=== PATIENT | male | born 1955 | race Caucasian/White ===

== ENCOUNTER 2019-03-05 07:19 | Day surgery (SDC) | payer BC, OTHER ==
[2019-03-03 15:16] VITALS: BMI 37.7
[2019-03-05] MEDS ORDERED: MIDAZOLAM HCL 2 MG/2 ML SINGLE DOSE VIAL ONE ×2 (09:45→10:26)
[2019-03-05] MEDS ORDERED: ROPIVACAINE HCL 0.5% 30ML VIAL ONE (09:45)
--- NOTE | 2019-03-05 09:54 | HP ---
[facility]ellite [facility] - Chief Complaint Chief Complaint: right shoulder pain - Past Medical History Allergies/Adverse Reactions: Allergies Allergy/AdvReac Type Severity Reaction Status Date / Time No Known Allergies Allergy Verified 03/03/19 15:05 - Current Medications Current Medications: Home Medications Medication Instructions Recorded Glucosa Kessler 2Kcl/Chondroitin Kessler 1 each PO DAILY 03/03/19 [Glucosamine & Chondroitin Cap] Magnesium 250 mg PO DAILY 03/03/19 Oxycodone HCl/Acetaminophen 1 - 2 tab PO Q6H #30 tab MDD 6 03/05/19 [Percocet 5-325 mg Tablet] Satellite Physical Exam - Physical Examination Vital Signs: Vital Signs Period Temp Pulse Resp BP Sys/Tanner Pulse Ox Last 24 Hr 98.1 F 88 18 133/89 General Appearance: Well Nourished, Well Developed, Alert & Oriented x3 ENT: Clear Lung: Normal air movement Heart: Regular rate & rhythm Extremities: Other (right shoulder- + ttp, decrrom, + emtpy can, + neer, + huggins, nvi, MRI + rct) Neurological: Intact, Alert, Oriented Satellite Impression/Plan - Impression/Plan Impression: right shoulder rct Operative Procedure: right shoulder arthroscopy with RCR, SAD Date to be Performed: 03/05/19
[2019-03-05] MEDS ORDERED: ROCURONIUM BROMIDE 50 MG/5 ML SYRINGE ONE (10:26)
[2019-03-05] MEDS ORDERED: PROPOFOL 20 ML ONE (10:26)
[2019-03-05] MEDS ORDERED: ePHEDrine SULFATE 50 MG/1 ML AMPULE ONE (10:33)
[2019-03-05] MEDS ORDERED: DEXAMETHASONE SOD PHOSPHATE 4 MG/1 ML VIAL ONE (10:34)
[2019-03-05] MEDS ORDERED: oxyCODONE HCL 5 MG TABLET PO PRN (11:02)
[2019-03-05] MEDS ORDERED: ONDANSETRON 4 MG/2 ML VIAL IVPUSH PRN (11:02)
[2019-03-05] MEDS ORDERED: LACTATED RINGERS SOLUTION 1,000 ML IV SCH (11:15)
[2019-03-05] MEDS ORDERED: NEOSTIGMINE METHYLSULFATE 0.5 MG/ML - 10 ML MDV ONE (11:21)
[2019-03-05] MEDS ORDERED: GLYCOPYRROLATE 0.2 MG/1 ML VIAL ONE (11:21)
--- NOTE | 2019-03-05 11:31 | OP ---
Operative Note - Note: Operative Date: 03/05/19 (geronimo) Pre-Operative Diagnosis: right shoulder rct Operation: right shoulder arthroscopy with SAD Post-Operative Diagnosis: Same as Pre-op Surgeon: Luís Ramirez [employer] Testing Technician: Renny Keating Anesthesia: General, Local Specimens Removed: shavings Estimated Blood Loss (mls): 5
[2019-03-05] MEDS ORDERED: FAMOTIDINE 20 MG PREMIXED IVPB IVPB ONE (12:00)
[2019-03-05] MEDS ORDERED: FAMOTIDINE 20 MG/50 ML IVPB 20 MG/50 ML MG IVPB ONE (12:00)
[2019-03-05 13:32] VITALS: TEMP 98.2
[2019-03-05 14:55] VITALS: BP 143/74; PULSE 75
--- NOTE | 2019-03-08 15:52 | OP ---
DATE OF OPERATION: 03/05/2019 PREOPERATIVE DIAGNOSIS: Right rotator cuff tear. POSTOPERATIVE DIAGNOSIS: Right rotator cuff tear. PROCEDURE: Arthroscopy right shoulder, subacromial decompression, debridement of rotator cuff but no repair. SURGICAL ATTENDING: Luís Ramirez MD INSTRUCTOR OF SPANISH: ROSALINO Souza ANESTHESIA: Regional and general. CLOSURE: 4-0 nylon. COMPLICATIONS: None. CONDITION: To the recovery room in stable condition. DESCRIPTION OF PROCEDURE: Patient was taken to the operating room on March 05, 2019. Regional and general anesthesia were administered by the anesthesiologist. IV Kefzol was administered prophylactically prior to the case. Patient was placed in the beach chair position with all prominences well padded. Right shoulder area was prepped and draped in the usual sterile fashion. First, a diagnostic arthroscopy of the glenohumeral joint was performed. The posterior portal was made 2 fingerbreadths below the acromion with a 15 blade followed by a blunt trocar. Exam of the glenohumeral joint revealed the following: Intact glenohumeral articular cartilage, intact biceps and biceps anchor, intact labrum circumferentially. No loose body in the axillary pouch. Intact subscapularis to its insertion. Looking superiorly, the humeral head was completely devoid of rotator cuff with the scope able to transverse over the top and to the lateral side of the humeral head and the acromion being clearly visualized from inside the glenohumeral joint. The trocar was removed, and the fluid was drained. The posterior trocar was redirected in the subacromial space. An accessory lateral portal was made with a 15 blade followed by a blunt trocar. A subacromial bursectomy was then performed exposing the femoral head, the rotator cuff, and the acromion. The undersurface of the acromion was clean. Large, subacromial bone spurs were debrided, and an acromioplasty was performed gaining sufficient height for the humeral head. Coracoacrominal ligament was left in situ though. Looking inferiorly on the humeral head, the head was clearly visualized from the subacromial space completely devoid of rotator cuff tissue. The medial edge of the rotator cuff was retracted back past the glenoid. Blair and ArthroCare device were used to free up the rotator cuff. A grasper was used to pull on the rotator cuff, and it was found to be completely deficient with no excursion whatsoever. The muscular fibers appeared to be fatty deposition as well. The rotator cuff was partially attached all the way in the teres minor region, but the rest of the rotator cuff was completely devoid with no excursion whatsoever. It was, therefore, decided that a rotator cuff repair would not be possible. Any soft tissue on the greater tuberosity was debrided. All scar tissue around the shoulder was debrided as well. The trocars were then removed. The fluid was drained from the shoulder. Portal incisions were closed using 3-0 nylon. Aquacel dressing was applied. A sling was applied. The patient was awakened from anesthesia and transferred to recovery room in stable condition. No complications. Estimated blood loss negligible. Nenita [id number]
== END 2019-03-05 14:05 | disposition home or self-care (01) ==
LOC: FASU 07:19
PROVIDERS: ATTEND Orthopaedic Surgery
PROC: 0RBJ4ZZ Excision of Right Shoulder Joint, Percutaneous Endoscopic Approach (ICD-10-PCS; principal; 2019-03-05 11:04)
DX: M75.121 Complete rotator cuff tear or rupture of right shoulder, not specified as traumatic (principal)
CPT/HCPCS: 94760